=== PATIENT | male | born 1950 | race Caucasian/White ===

== ENCOUNTER 2018-05-04 11:23 | Emergency (ER) | payer MEDICARE ==
[~2018-05-04] VITALS: Ht 177.8 cm; Wt 81.7 kg
[2018-05-04] MEDS ORDERED: ASPIR 8181 MG PO (11:29)
[2018-05-04] MEDS ORDERED: NORVASC2.5 MG (11:30)
[2018-05-04] MEDS ORDERED: BENAZEPRIL HCL40 MG PO (11:30)
[2018-05-04 11:57] LABS: ABSOLUTE BASOPHILS 0.1 thou/uL (0.0-0.2); ABSOLUTE EOSINOPHILS 0.2 thou/uL (0.0-0.7); ABSOLUTE LYMPHOCYTES 1.1 thou/uL (0.8-5.3); ABSOLUTE MONOCYTES 0.6 thou/uL (0.0-1.2); BASOPHILS 1.1 %; EOSINOPHILS 3.5 %; HEMATOCRIT 41.1 % (42.0-52.0); HEMOGLOBIN 13.9 gm/dL (14.0-18.0); LYMPHOCYTES 15.5 %; MCH 31.2 pg (26.0-34.0); MCHC 33.9 g/dL (28.0-37.0); MCV 92.1 fL (80.0-100.0); MONOCYTES 8.6 %; MPV 7.4 fl. (7.2-11.1); NUCLEATED RBCS 0 /100WBC; PLATELET COUNT* 201 thou/uL (150-400); POLYS 71.3 %; RBC 4.46 mil/uL (4.50-6.00); RDW-CV 14.1 % (10.5-14.5); WBC 7.1 thou/uL (4.0-11.0)
[2018-05-04 12:08] LABS: ANION GAP 7 mmol/L (7-16); BUN 9 mg/dL (7-18); CALCIUM 9.5 mg/dL (8.5-10.1); CHLORIDE 97 mmol/L (98-107); CO2 26 mmol/L (21-32); CREATININE 0.8 mg/dL (0.6-1.3); GLUCOSE 107 mg/dL (70-99); POTASSIUM 3.8 mmol/L (3.5-5.1); SODIUM 130 mmol/L (136-145)
[2018-05-04 12:15] LABS: ALBUMIN 3.6 g/dL (3.4-5.0); ALKALINE PHOSPHATASE 67 U/L (46-116); SGOT 21 U/L (15-37); SGPT 28 U/L (30-65); TOTAL BILIRUBIN 0.4 mg/dL (<0.1-1.0); TOTAL PROTEIN 8.5 g/dL (6.4-8.2); TROPONIN-I LEVEL <0.06 ng/mL (<0.06)
[2018-05-04] MEDS ORDERED: IBUPROFEN 800800 M1 PO (12:28)
[2018-05-04 12:45] VITALS: BP 183/106
--- NOTE | 2018-05-04 16:49 | EKG ---
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
== END 2018-05-04 12:49 | disposition home or self-care (01) ==
LOC: M.ERS 11:23
PROVIDERS: Emergency Medicine Emergency Medical Services
DX: G56.22 Lesion of ulnar nerve, left upper limb (principal); I10 Essential (primary) hypertension

== ENCOUNTER → 2021-03-04 | Outpatient (CLI) | payer MEDICARE ==
[~2021-03-04] MED LIST: ASPIR 8181 MG PO; BENAZEPRIL HCL40 MG PO; IBUPROFEN 800800 M1 PO; NORVASC2.5 MG
== END ==
LOC: M.RAD 15:04
PROVIDERS: ATTEND Family Medicine
DX: M85.88 Other specified disorders of bone density and structure, other site (principal)